=== PATIENT | male | born 1945 | race Caucasian/White ===

== ENCOUNTER 2022-01-14 05:37 | Day surgery (SDC) | payer OTHER ==
[2022-01-13 09:39] VITALS: BMI 23.6
[2022-01-14] MEDS ORDERED: EPINEPHrine 1 MG/ML AMP ONE (06:32)
[2022-01-14] MEDS ORDERED: Bupivacaine PF 0.5% 30 ML VIAL ONE (06:33)
[2022-01-14] MEDS ORDERED: PROPOFOL 20 ML ONE (06:35)
[2022-01-14] MEDS ORDERED: Fentanyl 100 MCG/2 ML VIAL ONE (06:35)
[2022-01-14] MEDS ORDERED: Lidocaine 1% PF 5 ML VIAL ONE (06:35)
[2022-01-14] MEDS ORDERED: Ondansetron PF 4 MG/2 ML Vial ONE (06:35)
[2022-01-14] MEDS ORDERED: CEFAZOLIN 2 GM VIAL ONE (06:47)
[2022-01-14] MEDS ORDERED: Famotidine/PF 20 mg/2ml Vial ONE (06:53)
[2022-01-14] MEDS ORDERED: Succinylcholine 200 MG/10 ml SYRINGE FS ONE (06:53)
[2022-01-14] MEDS ORDERED: Metoclopramide HCl 10 MG/2 ML VIAL ONE (06:54)
[2022-01-14] MEDS ORDERED: Dexamethasone 20 MG/5 ML VIAL ONE (07:11)
[2022-01-14] MEDS ORDERED: HYDROmorphone 0.5 MG/0.5 ML SYRINGE ONE ×2 (07:39→08:00)
[2022-01-14] MEDS ORDERED: Acetaminophen 325 MG TAB PO PRN (07:51)
[2022-01-14] MEDS ORDERED: HYDROcodone/Acetaminophen 5/325 mg Tablet PO PRN (07:51)
[2022-01-14] MEDS ORDERED: HYDROcodone/Acetaminophen 5/325 mg Tablet ONE (08:16)
== END 2022-01-14 08:45 | disposition home or self-care (01) ==
LOC: CSHSDC 05:37
PROVIDERS: ATTEND Surgery
PROC: 05HN33Z Insertion of Infusion Device into Left Internal Jugular Vein, Percutaneous Approach (ICD-10-PCS; principal; 2022-01-14)
DX: Z45.2 Encounter for adjustment and management of vascular access device (principal); C34.11 Malignant neoplasm of upper lobe, right bronchus or lung; I73.9 Peripheral vascular disease, unspecified; I10 Essential (primary) hypertension
CPT/HCPCS: 71045; C1788; J0171; J1100; J1170; J1642; J2405; J2704; J2765; J3010; S0020; S0028

== ENCOUNTER 2022-03-20 09:30 | Outpatient (CLI) | payer OTHER ==
[2022-03-20] MEDS ORDERED: Magnevist 469MG/ML 20 ML VIAL ONE (14:35)
== END 2022-03-20 09:31 | disposition home or self-care (01) ==
LOC: CSHMRI 09:30
PROVIDERS: ATTEND Radiology Radiation Oncology
DX: C79.31 Secondary malignant neoplasm of brain (principal); C34.90 Malignant neoplasm of unspecified part of unspecified bronchus or lung
CPT/HCPCS: 70553

== ENCOUNTER 2022-06-02 13:05 | Inpatient (IN) | payer OTHER ==
[~2022-06-02 13:05] MED LIST: Rocuronium Bromide 10 MG/ML (10ML VIAL) ONE
[2022-06-02] MEDS ORDERED: Propofol 1,000 MG/100 ML VIAL IV ONE (14:04)
[2022-06-02] MEDS ORDERED: Dextrose 5% in Water 1,000 ML IV PRN (14:22)
[2022-06-02] MEDS ORDERED: Dextrose 50% Abboject 50 ML SYRINGE SLOW IVP PRN (14:22)
[2022-06-02] MEDS ORDERED: Ventilator Sedation Protocol 1 EACH FS SCH (14:30)
[2022-06-02] MEDS ORDERED: Sodium Bicarbonate 50 MEQ, Admixture Fee 1 EACH in Sodium Chloride 0.45% 1,000 ML IV SCH (14:30)
[2022-06-02] MEDS ORDERED: Fentanyl BOLUS 250 ML IVPB PRN (14:45)
[2022-06-02] MEDS ORDERED: Propofol BOLUS 1,000 MG/100 ML VIAL IV PRN (14:45)
[2022-06-02] MEDS ORDERED: FENTANYL 2,000MCG/100-0.9%NACL 100 ML IVPB SCH (14:45)
[2022-06-02] MEDS ORDERED: DISCONTINUE PREVIOUS NARCOTIC PAIN MEDICATIONS AND BENZODIAZEPINES FS SCH (14:45)
[2022-06-02] MEDS ORDERED: Morphine 2 MG/ML VIAL SLOW IVP PRN (14:45)
[2022-06-02] MEDS ORDERED: Lorazepam 2 MG/ML VIAL SLOW IVP PRN (14:45)
[2022-06-02 15:13] LABS: Bilirubin Neg (Negative); Blood, Urine 10 (Negative); Clarity Cloudy (Clear); Glucose, Urine (Dipstick) 50 mg/dL (Negative); Ketone, Urine 15 mg/dL (Negative); Leukocyte 25 (Negative); Nitrite Negative (Negative); Protein, Urine (Dipstick) 30 mg/dl (Neg-Trace); Urobilinogen Normal mg/dL (Less than 2)
[2022-06-02] MEDS ORDERED: Sodium Chloride 0.9% 1,000 ML IV SCH (15:15)
[2022-06-02 15:22] LABS: Bacteria/HPF 1+ HPF (None Seen); Squamous Epithelial 0-3 HPF (0-3)
[2022-06-02 15:23] LABS: Mucous/LPF 1+ LPF (<2+)
[2022-06-02] MEDS: metroNIDAZOLE 500 MG in Premix Bag 1 BAG IVPB SCH (15:43)
[2022-06-02 15:53] LABS: Actual Bicarbonate (HCO3a) 11.4 mEq/L (22-28); Base Excess (BEa) -15.2 mEq/L (-2.0 to +3.0); CO2 Tension 29.6 mmHg (35.0-45.0); Calcium, Ionized (arterial) 1.15 mmol/L (1.12-1.30); Carboxyhemoglobin (COHb) 0.5 gm% (0.0-3.0); Hemoglobin (Hb) 13.2 g/dL (14.0-18.0); O2 Tension (PaO2), arterial 104.6 mmHg (> 70.0); Potassium - ABG Lab 3.9 mmol/L (3.70-5.30); Puncture Site LRA
[2022-06-02] MEDS: Diltiazem 125 MG, Admixture Fee 1 EACH in Sodium Chloride 0.9% 100 ML IVPB SCH (15:57)
[2022-06-02] MEDS ORDERED: Vancomycin Dose by Levels Sliding Scale (Wt 71-99) FS SCH (16:00)
[2022-06-02] MEDS ORDERED: VANCOMYCIN 1.25 GM/250 ML BAG 1.25 GM in Premix Bag 1 BAG IVPB SCH (16:00)
[2022-06-02] MEDS: Cefepime 1 GM in Sodium Chloride 0.9% 100 ML IVPB SCH (16:51)
[2022-06-02] MEDS ORDERED: HumaLOG 300 UNITS/3 ML VIAL ONE (17:03)
[2022-06-02] MEDS: HumaLOG 300 UNITS/3 ML VIAL SC PRN (17:06)
[2022-06-02 17:11] LABS: Lactic Acid 11.9 mmol/L (0.5-2.2)
[2022-06-02 17:40] LABS: Actual Bicarbonate (HCO3a) 13.6 mEq/L (22-28); Base Excess (BEa) -18.3 mEq/L (-2.0 to +3.0); CO2 Tension 60.7 mmHg (35.0-45.0); Calcium, Ionized (arterial) 1.09 mmol/L (1.12-1.30); Carboxyhemoglobin (COHb) 0.3 gm% (0.0-3.0); Critical Notified Whom: Alyssa, RN; Hemoglobin (Hb) 12.6 g/dL (14.0-18.0); O2 Tension (PaO2), arterial 314.8 mmHg (> 70.0); Potassium - ABG Lab 4.6 mmol/L (3.70-5.30); Puncture Site RRA; pH, Arterial 6.97 (7.35-7.45)
[2022-06-02 17:42] LABS: ALV-art Gradient 322.325 mmHg (0-20)
[2022-06-02] MEDS ORDERED: Sodium Bicarb 50 MEQ/50 ML Abboject 8.4% SYRINGE IVP SCH ×2 (18:15→18:45)
[2022-06-02] MEDS ORDERED: Sodium Bicarb 50 MEQ/50 ML VIAL FS SCH (18:15)
[2022-06-02] MEDS ORDERED: Sodium Bicarb 50 MEQ/50 ML VIAL IVP SCH (18:45)
[2022-06-02] MEDS ORDERED: Sodium Bicarbonate 150 MEQ in Dextrose 5% in Water 1,000 ML IV SCH (19:00)
[2022-06-02 19:32] LABS: ALV-art Gradient 167.225 mmHg (0-20); Actual Bicarbonate (HCO3a) 16.1 mEq/L (22-28); Base Excess (BEa) -8.3 mEq/L (-2.0 to +3.0); CO2 Tension 30.3 mmHg (35.0-45.0); Calcium, Ionized (arterial) 1.04 mmol/L (1.12-1.30); Carboxyhemoglobin (COHb) 0.7 gm% (0.0-3.0); Critical Notified By: CP.PH; Hemoglobin (Hb) 13.1 g/dL (14.0-18.0); O2 Tension (PaO2), arterial 80.1 mmHg (> 70.0); Potassium - ABG Lab 4.2 mmol/L (3.70-5.30); Puncture Site RRA; RapidComm Collect By CP.PH; pH, Arterial 7.34 (7.35-7.45)
[2022-06-02] MEDS ORDERED: Famotidine/PF 20 mg/2ml Vial SLOW IVP SCH (21:00)
[2022-06-02] MEDS ORDERED: Vancomycin HCl 1.5 GM in Sodium Chloride 0.9% 250 ML 300 ML IVPB SCH (21:00)
[2022-06-02] MEDS ORDERED: Acetaminophen 650 MG Suppository PR PRN (21:38)
[2022-06-02] MEDS: Heparin 5,000 UNITS/ML VIAL SC SCH (21:54)
[2022-06-02] MEDS: Acetaminophen 325 MG TAB PO PRN (22:00)
[2022-06-02 22:29] LABS: Anion Gap 24 mmol/L (10-20); BUN (Urea Nitrogen) 53 mg/dL (8.4-25.7); Calc. Creatinine Clearance 23 mL/min (70-130); Calcium 7.9 mg/dL (7.8-10.44); Carbon Dioxide 18 mmol/L (23-31); Chloride 102 mmol/L (98-107); Estimated GFR 21; Glucose 198 mg/dL (83-110); Potassium 3.5 mmol/L (3.5-5.1); Sodium 140 mmol/L (136-145)
[2022-06-03] MEDS: metroNIDAZOLE 500 MG in Premix Bag 1 BAG IVPB SCH ×3 (00:47→14:15)
[2022-06-03] MEDS: Propofol 1,000 MG/100 ML VIAL IV PRN ×3 (01:57→17:58)
[2022-06-03 03:09] LABS: Hemoglobin 11.6 g/dL (13.5-17.5); Mean Corpuscular Hemoglobin 30.1 pg (27.0-33.0); Mean Corpuscular Volume 88.6 fl (81.2-95.1); Mean Platelet Volume 10.6 fl (7.4-10.4); Platelet Count 120 10x3/uL (150-450); Red Blood Cell (RBC) Count 3.85 10x6/uL (4.32-5.72)
[2022-06-03 03:10] LABS: MDiff Complete? YES
[2022-06-03 04:01] LABS: Band 5 % (5-11); Lymphocytes 7 % (21-51); Metamyelocyte 3 % (0-0); Monocytes 10 % (0-10); Neutrophil 73 % (42-75); Platelet Morphology Comment Appears Decreased; Reactive Lymphocytes 2 % (0-10)
[2022-06-03 04:33] LABS: ALT (SGPT) 24 U/L (8-55); AST (SGOT) 35 U/L (5-34); Albumin 2.7 g/dL (3.4-4.8); Alkaline Phosphatase 33 U/L (40-110); Anion Gap 22 mmol/L (10-20); BUN (Urea Nitrogen) 57 mg/dL (8.4-25.7); Bilirubin, Total 0.4 mg/dL (0.2-1.2); Calc. Creatinine Clearance 21 mL/min (70-130); Calcium 7.8 mg/dL (7.8-10.44); Carbon Dioxide 21 mmol/L (23-31); Chloride 99 mmol/L (98-107); Estimated GFR 18; Globulin 3.1 g/dL (2.4-3.5); Glucose 188 mg/dL (83-110); Potassium 3.1 mmol/L (3.5-5.1); Protein, Total 5.8 g/dL (5.8-8.1); Sodium 139 mmol/L (136-145)
[2022-06-03] MEDS ORDERED: Sodium Bicarbonate 150 MEQ in Dextrose 5% in Water 1,000 ML IV SCH (05:15)
[2022-06-03] MEDS: Potassium Chloride 20 MEQ in Premix Bag 1 BAG IVPB SCH ×4 (05:25→20:37)
[2022-06-03 08:16] LABS: Actual Bicarbonate (HCO3a) 25.3 mEq/L (22-28); Base Excess (BEa) 3.3 mEq/L (-2.0 to +3.0); CO2 Tension 30.4 mmHg (35.0-45.0); Calcium, Ionized (arterial) 0.92 mmol/L (1.12-1.30); Carboxyhemoglobin (COHb) 0.5 gm% (0.0-3.0); O2 Tension (PaO2), arterial 69.1 mmHg (> 70.0); Potassium - ABG Lab 3.3 mmol/L (3.70-5.30); Puncture Site LRA; pH, Arterial 7.54 (7.35-7.45)
[2022-06-03] MEDS: Heparin 5,000 UNITS/ML VIAL SC SCH ×3 (09:24→21:32)
[2022-06-03 10:44] LABS: Lactic Acid 4.8 mmol/L (0.5-2.2)
[2022-06-03] MEDS: Diltiazem 125 MG, Admixture Fee 1 EACH in Sodium Chloride 0.9% 100 ML IVPB SCH ×2 (11:14→20:11)
[2022-06-03] MEDS ORDERED: Sodium Chloride 0.9% 500 ML IV SCH ×2 (11:45→15:45)
[2022-06-03] MEDS: Acetaminophen 325 MG TAB PO PRN (11:53)
[2022-06-03 15:01] LABS: Lactic Acid 4.3 mmol/L (0.5-2.2)
[2022-06-03] MEDS: Cefepime 1 GM in Sodium Chloride 0.9% 100 ML IVPB SCH (15:44)
[2022-06-03 16:21] LABS: Anion Gap 21 mmol/L (10-20); BUN (Urea Nitrogen) 61 mg/dL (8.4-25.7); Calc. Creatinine Clearance 22 mL/min (70-130); Calcium 7.8 mg/dL (7.8-10.44); Carbon Dioxide 26 mmol/L (23-31); Chloride 97 mmol/L (98-107); Estimated GFR 19; Glucose 135 mg/dL (83-110); Potassium 3.3 mmol/L (3.5-5.1); Sodium 141 mmol/L (136-145)
[2022-06-03] MEDS ORDERED: Vancomycin HCl 750 MG in Sodium Chloride 0.9% 250 ML 250 ML IVPB SCH (18:15)
[2022-06-03 19:26] LABS: Lactic Acid 3.8 mmol/L (0.5-2.2)
[2022-06-03] MEDS ORDERED: Famotidine/PF 20 mg/2ml Vial SLOW IVP SCH (21:00)
[2022-06-04] MEDS: metroNIDAZOLE 500 MG in Premix Bag 1 BAG IVPB SCH ×4 (00:24→23:47)
[2022-06-04] MEDS: Acetaminophen 325 MG TAB PO PRN ×2 (00:36→15:38)
[2022-06-04 03:52] LABS: Hemoglobin 10.6 g/dL (13.5-17.5); Mean Corpuscular HGB CONC 33.8 g/dL (32.0-36.0); Mean Corpuscular Hemoglobin 30.2 pg (27.0-33.0); Mean Corpuscular Volume 89.5 fl (81.2-95.1); Mean Platelet Volume 11.3 fl (7.4-10.4); Platelet Count 125 10x3/uL (150-450); RBC Distribution Width 13.3 % (11.5-14.5); Red Blood Cell (RBC) Count 3.51 10x6/uL (4.32-5.72)
[2022-06-04 03:55] LABS: ALT (SGPT) 33 U/L (8-55); AST (SGOT) 60 U/L (5-34); Albumin 2.4 g/dL (3.4-4.8); Alkaline Phosphatase 65 U/L (40-110); Anion Gap 19 mmol/L (10-20); BUN (Urea Nitrogen) 63 mg/dL (8.4-25.7); Bilirubin, Total 0.5 mg/dL (0.2-1.2); Calc. Creatinine Clearance 22 mL/min (70-130); Calcium 8.1 mg/dL (7.8-10.44); Carbon Dioxide 25 mmol/L (23-31); Chloride 100 mmol/L (98-107); Estimated GFR 21; Globulin 3.3 g/dL (2.4-3.5); Glucose 133 mg/dL (83-110); Potassium 3.4 mmol/L (3.5-5.1); Protein, Total 5.7 g/dL (5.8-8.1); Sodium 141 mmol/L (136-145)
[2022-06-04] MEDS: Propofol 1,000 MG/100 ML VIAL IV PRN ×3 (05:11→19:24)
[2022-06-04 05:38] LABS: MDiff Complete? YES
[2022-06-04] MEDS: Diltiazem 125 MG, Admixture Fee 1 EACH in Sodium Chloride 0.9% 100 ML IVPB SCH ×2 (05:40→15:38)
[2022-06-04 05:43] LABS: Band 34 % (5-11); Lymphocytes 7 % (21-51); Metamyelocyte 3 % (0-0); Monocytes 6 % (0-10); Neutrophil 50 % (42-75)
[2022-06-04 05:45] LABS: Anisocytosis SLIGHT = 6-15 cells (100X) (0-5/hpf); Platelet Morphology Comment Appears Decreased
[2022-06-04] MEDS: Heparin 5,000 UNITS/ML VIAL SC SCH ×3 (08:08→21:10)
[2022-06-04] MEDS: Cefepime 1 GM in Sodium Chloride 0.9% 100 ML IVPB SCH ×2 (08:08→21:10)
[2022-06-04] MEDS ORDERED: Potassium Bicarbonate/Cit Ac 20 MEQ TAB PO SCH (08:15)
[2022-06-04] MEDS ORDERED: Vancomycin HCl 500 MG in Sodium Chloride 0.9% 100 ML IVPB SCH (17:00)
[2022-06-04 17:04] LABS: Vancomycin, Random 13.9 ug/mL (See Comment)
[2022-06-04] MEDS ORDERED: Vancomycin HCl 750 MG in Sodium Chloride 0.9% 250 ML 250 ML IVPB SCH (17:30)
[2022-06-04] MEDS ORDERED: Famotidine/PF 20 mg/2ml Vial SLOW IVP SCH (21:00)
[2022-06-05] MEDS: Propofol 1,000 MG/100 ML VIAL IV PRN ×5 (00:38→19:57)
[2022-06-05] MEDS: Diltiazem 125 MG, Admixture Fee 1 EACH in Sodium Chloride 0.9% 100 ML IVPB SCH ×2 (04:25→15:52)
[2022-06-05 04:42] LABS: Mean Corpuscular HGB CONC 34.1 g/dL (32.0-36.0); Mean Corpuscular Hemoglobin 30.1 pg (27.0-33.0); Mean Corpuscular Volume 88.5 fl (81.2-95.1); Mean Platelet Volume 11.8 fl (7.4-10.4); Platelet Count 118 10x3/uL (150-450); RBC Distribution Width 13.4 % (11.5-14.5); Red Blood Cell (RBC) Count 3.65 10x6/uL (4.32-5.72); White Blood Cell (WBC) Count 15.9 10x3/uL (3.5-10.5)
[2022-06-05 05:01] LABS: Anion Gap 19 mmol/L (10-20); BUN (Urea Nitrogen) 61 mg/dL (8.4-25.7); Calc. Creatinine Clearance 31 mL/min (70-130); Calcium 8.5 mg/dL (7.8-10.44); Carbon Dioxide 22 mmol/L (23-31); Chloride 103 mmol/L (98-107); Estimated GFR 28; Glucose 160 mg/dL (83-110); Sodium 140 mmol/L (136-145)
[2022-06-05] MEDS: metroNIDAZOLE 500 MG in Premix Bag 1 BAG IVPB SCH ×3 (06:00→22:30)
[2022-06-05] MEDS: Cefepime 2 GM in Sodium Chloride 0.9% 100 ML IVPB SCH ×2 (08:14→19:43)
[2022-06-05] MEDS: Heparin 5,000 UNITS/ML VIAL SC SCH ×3 (08:15→20:00)
[2022-06-05] MEDS: HumaLOG 300 UNITS/3 ML VIAL SC PRN (12:10)
[2022-06-05] MEDS: Scopolamine 1.5 mg/72 hour Patch TD SCH (13:56)
[2022-06-05 16:52] LABS: Vancomycin, Random 13.1 ug/mL (See Comment)
[2022-06-05] MEDS ORDERED: Vancomycin HCl 750 MG in Sodium Chloride 0.9% 250 ML 250 ML IVPB SCH (20:00)
[2022-06-05] MEDS: Famotidine/PF 20 mg/2ml Vial SLOW IVP SCH (20:00)
[2022-06-05] MEDS: Acetaminophen 325 MG TAB PO PRN (20:39)
[2022-06-06] MEDS: HumaLOG 300 UNITS/3 ML VIAL SC PRN ×2 (00:07→05:38)
[2022-06-06] MEDS: Propofol 1,000 MG/100 ML VIAL IV PRN ×3 (00:07→08:32)
[2022-06-06] MEDS: Diltiazem 125 MG, Admixture Fee 1 EACH in Sodium Chloride 0.9% 100 ML IVPB SCH ×2 (03:35→15:22)
[2022-06-06 04:11] LABS: #Eosinphils 0.1 10x3/uL (0.0-0.5); #Monocytes 1.1 10x3/uL (0.0-1.1); #Neutrophils 13.6 10x3/uL (1.5-8.4); %Basophils 0.3 % (0.0-2.0); %Eosinophils 0.5 % (0.0-6.0); %Lymphocytes 5.2 % (18.0-47.0); %Monocytes 6.6 % (0.0-10.0); %Neutrophils 85.4 % (40.0-75.0); Hemoglobin 10.8 g/dL (13.5-17.5); Mean Corpuscular HGB CONC 32.5 g/dL (32.0-36.0); Mean Corpuscular Hemoglobin 30.1 pg (27.0-33.0); Mean Corpuscular Volume 92.5 fl (81.2-95.1); Platelet Count 132 10x3/uL (150-450); RBC Distribution Width 14.1 % (11.5-14.5); Red Blood Cell (RBC) Count 3.59 10x6/uL (4.32-5.72)
[2022-06-06 04:26] LABS: ALT (SGPT) 33 U/L (8-55); AST (SGOT) 45 U/L (5-34); Albumin 2.3 g/dL (3.4-4.8); Alkaline Phosphatase 227 U/L (40-110); Anion Gap 16 mmol/L (10-20); BUN (Urea Nitrogen) 55 mg/dL (8.4-25.7); Bilirubin, Total 0.6 mg/dL (0.2-1.2); Calc. Creatinine Clearance 34 mL/min (70-130); Calcium 8.4 mg/dL (7.8-10.44); Carbon Dioxide 23 mmol/L (23-31); Chloride 106 mmol/L (98-107); Estimated GFR 33; Globulin 3.7 g/dL (2.4-3.5); Glucose 163 mg/dL (83-110); Potassium 3.1 mmol/L (3.5-5.1); Sodium 142 mmol/L (136-145)
[2022-06-06] MEDS: metroNIDAZOLE 500 MG in Premix Bag 1 BAG IVPB SCH ×3 (06:06→23:15)
[2022-06-06] MEDS: Cefepime 2 GM in Sodium Chloride 0.9% 100 ML IVPB SCH ×2 (08:26→19:49)
[2022-06-06] MEDS ORDERED: Potassium Bicarbonate/Cit Ac 20 MEQ TAB PO SCH (08:30)
[2022-06-06] MEDS: Heparin 5,000 UNITS/ML VIAL SC SCH ×3 (08:36→20:18)
[2022-06-06] MEDS: Potassium Chloride 20 MEQ in Premix Bag 1 BAG IVPB SCH ×2 (08:43→11:20)
[2022-06-06] MEDS ORDERED: Docusate Sodium 100 MG/10 ML UDCUP PO PRN (11:03)
[2022-06-06] MEDS: Acetaminophen 325 MG TAB PO PRN (11:30)
[2022-06-06] MEDS ORDERED: Vancomycin HCl 750 MG in Sodium Chloride 0.9% 250 ML 250 ML IVPB SCH (17:00)
[2022-06-06] MEDS: Lactated Ringer's 1,000 ML IV SCH (19:48)
[2022-06-06] MEDS: Famotidine/PF 20 mg/2ml Vial SLOW IVP SCH (20:17)
[2022-06-07] MEDS: Diltiazem 125 MG, Admixture Fee 1 EACH in Sodium Chloride 0.9% 100 ML IVPB SCH ×2 (01:36→12:15)
[2022-06-07 04:20] LABS: Hemoglobin 12.9 g/dL (13.5-17.5); Mean Corpuscular HGB CONC 32.7 g/dL (32.0-36.0); Mean Corpuscular Volume 91.6 fl (81.2-95.1); Platelet Count 172 10x3/uL (150-450); RBC Distribution Width 14.4 % (11.5-14.5); White Blood Cell (WBC) Count 16.2 10x3/uL (3.5-10.5)
[2022-06-07 04:33] LABS: Anion Gap 16 mmol/L (10-20); BUN (Urea Nitrogen) 39 mg/dL (8.4-25.7); Calc. Creatinine Clearance 48 mL/min (70-130); Calcium 8.6 mg/dL (7.8-10.44); Carbon Dioxide 25 mmol/L (23-31); Chloride 110 mmol/L (98-107); Estimated GFR 48; Glucose 151 mg/dL (83-110); Potassium 3.6 mmol/L (3.5-5.1); Sodium 147 mmol/L (136-145)
[2022-06-07] MEDS: metroNIDAZOLE 500 MG in Premix Bag 1 BAG IVPB SCH ×3 (07:09→23:35)
[2022-06-07] MEDS: Cefepime 2 GM in Sodium Chloride 0.9% 100 ML IVPB SCH ×2 (08:39→20:22)
[2022-06-07] MEDS: Heparin 5,000 UNITS/ML VIAL SC SCH ×3 (08:39→20:23)
[2022-06-07] MEDS ORDERED: Guaifenesin DM 100-10/5 ML UDCUP PO PRN (10:06)
[2022-06-07] MEDS: Ondansetron PF 4 MG/2 ML Vial IVP PRN ×2 (15:30→20:54)
[2022-06-07] MEDS: Lactated Ringer's 1,000 ML IV SCH (15:37)
[2022-06-07] MEDS: HumaLOG 300 UNITS/3 ML VIAL SC PRN (17:08)
[2022-06-07] MEDS: Famotidine/PF 20 mg/2ml Vial SLOW IVP SCH (18:15)
[2022-06-07] MEDS: guaiFENesin ER 600 MG TAB PO SCH (20:23)
[2022-06-07] MEDS ORDERED: Diltiazem 125 MG in Sodium Chloride 0.9% 100 ML IVPB SCH (20:45)
[2022-06-08] MEDS ORDERED: Diltiazem 125 MG in Sodium Chloride 0.9% 100 ML IVPB SCH (01:00)
[2022-06-08 05:51] LABS: Hemoglobin 11.4 g/dL (13.5-17.5); Mean Corpuscular HGB CONC 31.6 g/dL (32.0-36.0); Mean Corpuscular Hemoglobin 29.3 pg (27.0-33.0); Mean Corpuscular Volume 92.8 fl (81.2-95.1); Mean Platelet Volume 10.6 fl (7.4-10.4); Platelet Count 230 10x3/uL (150-450); RBC Distribution Width 14.7 % (11.5-14.5); Red Blood Cell (RBC) Count 3.89 10x6/uL (4.32-5.72); White Blood Cell (WBC) Count 15.9 10x3/uL (3.5-10.5)
[2022-06-08 06:04] LABS: Anion Gap 14 mmol/L (10-20); BUN (Urea Nitrogen) 37 mg/dL (8.4-25.7); Calc. Creatinine Clearance 55 mL/min (70-130); Calcium 8.3 mg/dL (7.8-10.44); Carbon Dioxide 26 mmol/L (23-31); Chloride 110 mmol/L (98-107); Estimated GFR 57; Glucose 155 mg/dL (83-110); Potassium 3.6 mmol/L (3.5-5.1); Sodium 146 mmol/L (136-145)
[2022-06-08] MEDS: metroNIDAZOLE 500 MG in Premix Bag 1 BAG IVPB SCH ×3 (06:18→22:57)
[2022-06-08] MEDS ORDERED: Famotidine/PF 20 mg/2ml Vial SLOW IVP SCH (09:00)
[2022-06-08] MEDS: guaiFENesin ER 600 MG TAB PO SCH ×2 (09:19→20:18)
[2022-06-08] MEDS: Heparin 5,000 UNITS/ML VIAL SC SCH ×2 (09:19→15:37)
[2022-06-08] MEDS: Cefepime 2 GM in Sodium Chloride 0.9% 100 ML IVPB SCH ×2 (09:19→20:06)
[2022-06-08] MEDS: Polyethylene Glycol 3350 17 GM Packet PER TUBE PRN (09:20)
[2022-06-08] MEDS: Scopolamine 1.5 mg/72 hour Patch TD SCH (11:47)
[2022-06-08] MEDS: HumaLOG 300 UNITS/3 ML VIAL SC PRN ×2 (12:53→22:55)
[2022-06-08] MEDS: Apixaban 5 MG TAB PO SCH (20:18)
[2022-06-08] MEDS: Amiodarone 200 MG TAB PO SCH (20:18)
[2022-06-09] MEDS: HumaLOG 300 UNITS/3 ML VIAL SC PRN ×2 (06:07→12:15)
[2022-06-09] MEDS: metroNIDAZOLE 500 MG in Premix Bag 1 BAG IVPB SCH ×2 (06:11→16:08)
[2022-06-09] MEDS: Cefepime 2 GM in Sodium Chloride 0.9% 100 ML IVPB SCH ×2 (08:20→21:57)
[2022-06-09] MEDS: Acetaminophen 325 MG TAB PO PRN (08:20)
[2022-06-09] MEDS: Amiodarone 200 MG TAB PO SCH ×2 (08:21→21:57)
[2022-06-09] MEDS: Apixaban 5 MG TAB PO SCH ×2 (08:21→21:57)
[2022-06-09] MEDS: guaiFENesin ER 600 MG TAB PO SCH ×2 (08:21→21:57)
[2022-06-10 05:33] LABS: Hemoglobin 11.6 g/dL (13.5-17.5); Mean Corpuscular HGB CONC 32.2 g/dL (32.0-36.0); Mean Corpuscular Hemoglobin 29.4 pg (27.0-33.0); Mean Corpuscular Volume 91.1 fl (81.2-95.1); Mean Platelet Volume 10.4 fl (7.4-10.4); Platelet Count 256 10x3/uL (150-450); RBC Distribution Width 14.4 % (11.5-14.5); Red Blood Cell (RBC) Count 3.95 10x6/uL (4.32-5.72); White Blood Cell (WBC) Count 14.3 10x3/uL (3.5-10.5)
[2022-06-10 05:54] LABS: Anion Gap 15 mmol/L (10-20); BUN (Urea Nitrogen) 34 mg/dL (8.4-25.7); Calc. Creatinine Clearance 56 mL/min (70-130); Carbon Dioxide 19 mmol/L (23-31); Chloride 107 mmol/L (98-107); Estimated GFR 59; Glucose 148 mg/dL (83-110); Potassium 3.8 mmol/L (3.5-5.1); Sodium 137 mmol/L (136-145)
[2022-06-10] MEDS: Apixaban 5 MG TAB PO SCH ×2 (08:27→20:35)
[2022-06-10] MEDS: Polyethylene Glycol 3350 17 GM Packet PER TUBE PRN (08:27)
[2022-06-10] MEDS: guaiFENesin ER 600 MG TAB PO SCH ×2 (08:27→20:35)
[2022-06-10] MEDS: Amiodarone 200 MG TAB PO SCH ×2 (08:27→20:35)
[2022-06-10] MEDS: HumaLOG 300 UNITS/3 ML VIAL SC PRN (11:21)
[2022-06-10] MEDS ORDERED: Furosemide 20 MG TAB PO SCH (12:00)
[2022-06-11] MEDS: Amiodarone 200 MG TAB PO SCH ×2 (07:58→20:42)
[2022-06-11] MEDS: Apixaban 5 MG TAB PO SCH ×2 (07:58→20:43)
[2022-06-11] MEDS: guaiFENesin ER 600 MG TAB PO SCH ×2 (07:58→20:43)
[2022-06-11] MEDS: Scopolamine 1.5 mg/72 hour Patch TD SCH (11:52)
[2022-06-11] MEDS: Aspirin Chewable 81 MG TAB PO SCH (20:43)
[2022-06-11] MEDS: Atorvastatin Calcium 10 MG TAB PO SCH (20:43)
[2022-06-12] MEDS ORDERED: Morphine 2 MG/ML VIAL SLOW IVP SCH (07:15)
[2022-06-12 08:21] LABS: #Eosinphils 0.1 10x3/uL (0.0-0.5); #Neutrophils 13.4 10x3/uL (1.5-8.4); %Basophils 0.3 % (0.0-2.0); %Eosinophils 0.3 % (0.0-6.0); %Lymphocytes 4.4 % (18.0-47.0); %Monocytes 6.8 % (0.0-10.0); %Neutrophils 87.2 % (40.0-75.0); Hemoglobin 11.2 g/dL (13.5-17.5); Mean Corpuscular HGB CONC 32.8 g/dL (32.0-36.0); Mean Corpuscular Hemoglobin 29.7 pg (27.0-33.0); Mean Corpuscular Volume 90.5 fl (81.2-95.1); Mean Platelet Volume 10.3 fl (7.4-10.4); Platelet Count 340 10x3/uL (150-450); RBC Distribution Width 14.5 % (11.5-14.5); Red Blood Cell (RBC) Count 3.77 10x6/uL (4.32-5.72); White Blood Cell (WBC) Count 15.3 10x3/uL (3.5-10.5)
[2022-06-12 08:35] LABS: INR-International Normal Ratio 1.5; PTT 33.9 sec (22.0-33.0); Prothrombin Time 15.6 sec (9.5-12.1)
[2022-06-12 08:43] LABS: ALT (SGPT) 13 U/L (8-55); AST (SGOT) 19 U/L (5-34); Albumin 2.3 g/dL (3.4-4.8); Alkaline Phosphatase 111 U/L (40-110); Anion Gap 15 mmol/L (10-20); BUN (Urea Nitrogen) 29 mg/dL (8.4-25.7); Bilirubin, Total 0.6 mg/dL (0.2-1.2); Calc. Creatinine Clearance 58 mL/min (70-130); Calcium 7.9 mg/dL (7.8-10.44); Carbon Dioxide 20 mmol/L (23-31); Chloride 103 mmol/L (98-107); Estimated GFR 61; Globulin 3.5 g/dL (2.4-3.5); Glucose 159 mg/dL (83-110); Potassium 3.7 mmol/L (3.5-5.1); Protein, Total 5.8 g/dL (5.8-8.1); Sodium 134 mmol/L (136-145)
[2022-06-12] MEDS: guaiFENesin ER 600 MG TAB PO SCH ×2 (08:59→23:34)
[2022-06-12] MEDS: Apixaban 5 MG TAB PO SCH ×2 (08:59→23:34)
[2022-06-12] MEDS: Amiodarone 200 MG TAB PO SCH ×2 (09:00→23:34)
[2022-06-12] MEDS ORDERED: Potassium Chloride 20 MEQ TAB PO SCH ×2 (10:15→13:30)
[2022-06-12] MEDS: Atorvastatin Calcium 10 MG TAB PO SCH (23:34)
[2022-06-12] MEDS: Aspirin Chewable 81 MG TAB PO SCH (23:34)
[2022-06-13 04:11] LABS: #Eosinphils 0.1 10x3/uL (0.0-0.5); #Monocytes 0.9 10x3/uL (0.0-1.1); %Basophils 0.3 % (0.0-2.0); %Eosinophils 0.8 % (0.0-6.0); %Lymphocytes 6.3 % (18.0-47.0); %Monocytes 7.9 % (0.0-10.0); %Neutrophils 83.7 % (40.0-75.0); Hemoglobin 10.8 g/dL (13.5-17.5); Mean Corpuscular HGB CONC 32.4 g/dL (32.0-36.0); Mean Corpuscular Hemoglobin 29.8 pg (27.0-33.0); Mean Corpuscular Volume 91.7 fl (81.2-95.1); Mean Platelet Volume 10.4 fl (7.4-10.4); Platelet Count 369 10x3/uL (150-450); RBC Distribution Width 14.2 % (11.5-14.5); Red Blood Cell (RBC) Count 3.63 10x6/uL (4.32-5.72)
[2022-06-13 04:25] LABS: Anion Gap 12 mmol/L (10-20); BUN (Urea Nitrogen) 26 mg/dL (8.4-25.7); Calc. Creatinine Clearance 62 mL/min (70-130); Carbon Dioxide 23 mmol/L (23-31); Chloride 103 mmol/L (98-107); Estimated GFR 66; Glucose 146 mg/dL (83-110); Magnesium 2.1 mg/dL (1.6-2.6); Potassium 4.1 mmol/L (3.5-5.1); Sodium 134 mmol/L (136-145)
[2022-06-13 10:38] VITALS: BMI 24.8
[2022-06-13] MEDS: Apixaban 5 MG TAB PO SCH ×2 (11:17→21:43)
[2022-06-13] MEDS: Amiodarone 200 MG TAB PO SCH ×2 (11:17→21:42)
[2022-06-13] MEDS: guaiFENesin ER 600 MG TAB PO SCH ×2 (11:17→21:42)
[2022-06-13] MEDS: Ondansetron PF 4 MG/2 ML Vial IVP PRN (13:59)
[2022-06-13] MEDS ORDERED: Lidocaine 2% Viscous Solution 10 ML, Aluminum & Magnesium Hydroxide 30 ML SSW SCH (15:00)
[2022-06-13] MEDS: Calcium Carbonate 500 MG ChewTAB PO PRN (15:01)
[2022-06-13] MEDS: Aspirin Chewable 81 MG TAB PO SCH (21:42)
[2022-06-13] MEDS: Atorvastatin Calcium 10 MG TAB PO SCH (21:43)
[2022-06-14 05:06] LABS: #Eosinphils 0.1 10x3/uL (0.0-0.5); #Monocytes 0.7 10x3/uL (0.0-1.1); #Neutrophils 7.4 10x3/uL (1.5-8.4); %Basophils 0.3 % (0.0-2.0); %Eosinophils 1.1 % (0.0-6.0); %Lymphocytes 7.5 % (18.0-47.0); %Monocytes 8.2 % (0.0-10.0); %Neutrophils 82.1 % (40.0-75.0); Hemoglobin 11.2 g/dL (13.5-17.5); Mean Corpuscular HGB CONC 31.9 g/dL (32.0-36.0); Mean Corpuscular Hemoglobin 29.9 pg (27.0-33.0); Mean Corpuscular Volume 93.6 fl (81.2-95.1); Mean Platelet Volume 10.4 fl (7.4-10.4); Platelet Count 426 10x3/uL (150-450); Red Blood Cell (RBC) Count 3.75 10x6/uL (4.32-5.72)
[2022-06-14 05:19] LABS: Anion Gap 11 mmol/L (10-20); BUN (Urea Nitrogen) 24 mg/dL (8.4-25.7); Calc. Creatinine Clearance 72 mL/min (70-130); Calcium 8.2 mg/dL (7.8-10.44); Carbon Dioxide 26 mmol/L (23-31); Chloride 104 mmol/L (98-107); Estimated GFR 69; Glucose 165 mg/dL (83-110); Magnesium 2.2 mg/dL (1.6-2.6); Potassium 4.4 mmol/L (3.5-5.1); Sodium 137 mmol/L (136-145)
[2022-06-14] MEDS: guaiFENesin ER 600 MG TAB PO SCH ×2 (08:36→21:46)
[2022-06-14] MEDS: Amiodarone 200 MG TAB PO SCH ×2 (08:36→21:46)
[2022-06-14] MEDS: Apixaban 5 MG TAB PO SCH ×2 (08:36→21:46)
[2022-06-14] MEDS ORDERED: Furosemide 20 MG/2 ML VIAL SLOW IVP SCH (10:30)
[2022-06-14] MEDS ORDERED: Lidocaine 2% Viscous Solution 10 ML, Aluminum & Magnesium Hydroxide 30 ML SSW SCH (10:30)
[2022-06-14] MEDS: Scopolamine 1.5 mg/72 hour Patch TD SCH (12:44)
[2022-06-14] MEDS: Calcium Carbonate 500 MG ChewTAB PO PRN (13:15)
[2022-06-14] MEDS: Ondansetron PF 4 MG/2 ML Vial IVP PRN (15:39)
[2022-06-14] MEDS: Atorvastatin Calcium 10 MG TAB PO SCH (21:45)
[2022-06-14] MEDS: Aspirin Chewable 81 MG TAB PO SCH (21:46)
[2022-06-14] MEDS: Senokot S 8.6-50 MG TAB PO SCH (21:46)
[2022-06-15 05:21] LABS: Anion Gap 13 mmol/L (10-20); BUN (Urea Nitrogen) 23 mg/dL (8.4-25.7); Calc. Creatinine Clearance 70 mL/min (70-130); Calcium 8.2 mg/dL (7.8-10.44); Carbon Dioxide 24 mmol/L (23-31); Chloride 104 mmol/L (98-107); Estimated GFR 76; Glucose 138 mg/dL (83-110); Magnesium 2.2 mg/dL (1.6-2.6); Potassium 4.6 mmol/L (3.5-5.1); Sodium 136 mmol/L (136-145)
[2022-06-15 05:29] LABS: #Eosinphils 0.1 10x3/uL (0.0-0.5); #Monocytes 0.8 10x3/uL (0.0-1.1); #Neutrophils 7.8 10x3/uL (1.5-8.4); %Basophils 0.4 % (0.0-2.0); %Eosinophils 1.2 % (0.0-6.0); %Lymphocytes 7.2 % (18.0-47.0); %Monocytes 8.7 % (0.0-10.0); Hemoglobin 10.9 g/dL (13.5-17.5); Mean Corpuscular HGB CONC 31.4 g/dL (32.0-36.0); Mean Corpuscular Hemoglobin 29.3 pg (27.0-33.0); Mean Corpuscular Volume 93.3 fl (81.2-95.1); Mean Platelet Volume 10.2 fl (7.4-10.4); Platelet Count 465 10x3/uL (150-450); RBC Distribution Width 13.8 % (11.5-14.5); Red Blood Cell (RBC) Count 3.72 10x6/uL (4.32-5.72); White Blood Cell (WBC) Count 9.5 10x3/uL (3.5-10.5)
[2022-06-15] MEDS: Amiodarone 200 MG TAB PO SCH ×2 (08:40→20:32)
[2022-06-15] MEDS: Apixaban 5 MG TAB PO SCH ×2 (08:41→20:32)
[2022-06-15] MEDS: Polyethylene Glycol 3350 17 GM Packet PER TUBE SCH (08:41)
[2022-06-15] MEDS: guaiFENesin ER 600 MG TAB PO SCH ×2 (08:41→20:32)
[2022-06-15] MEDS: Senokot S 8.6-50 MG TAB PO SCH ×2 (08:41→20:32)
[2022-06-15] MEDS: Calcium Carbonate 500 MG ChewTAB PO PRN (13:19)
[2022-06-15] MEDS: Ondansetron PF 4 MG/2 ML Vial IVP PRN (13:19)
[2022-06-15] MEDS ORDERED: Lidocaine 2% Viscous Solution 10 ML, Aluminum & Magnesium Hydroxide 30 ML SSW SCH (13:45)
[2022-06-15] MEDS ORDERED: Bisacodyl 5 MG TAB PO SCH (13:45)
[2022-06-15] MEDS ORDERED: Bisacodyl 10 MG SUPP PR SCH (13:45)
[2022-06-15] MEDS: Aspirin Chewable 81 MG TAB PO SCH (20:32)
[2022-06-15] MEDS: Atorvastatin Calcium 10 MG TAB PO SCH (20:32)
[2022-06-16 05:43] LABS: #Basophils 0.1 10x3/uL (0.0-0.2); #Eosinphils 0.1 10x3/uL (0.0-0.5); #Neutrophils 7.6 10x3/uL (1.5-8.4); %Basophils 0.5 % (0.0-2.0); %Lymphocytes 7.1 % (18.0-47.0); %Monocytes 10.1 % (0.0-10.0); %Neutrophils 80.7 % (40.0-75.0); Hemoglobin 10.7 g/dL (13.5-17.5); Mean Corpuscular HGB CONC 31.5 g/dL (32.0-36.0); Mean Corpuscular Hemoglobin 29.5 pg (27.0-33.0); Mean Corpuscular Volume 93.7 fl (81.2-95.1); Platelet Count 463 10x3/uL (150-450); RBC Distribution Width 13.5 % (11.5-14.5); Red Blood Cell (RBC) Count 3.63 10x6/uL (4.32-5.72); White Blood Cell (WBC) Count 9.5 10x3/uL (3.5-10.5)
[2022-06-16 05:59] LABS: Anion Gap 13 mmol/L (10-20); BUN (Urea Nitrogen) 21 mg/dL (8.4-25.7); Calc. Creatinine Clearance 66 mL/min (70-130); Calcium 8.1 mg/dL (7.8-10.44); Carbon Dioxide 24 mmol/L (23-31); Chloride 103 mmol/L (98-107); Estimated GFR 71; Glucose 126 mg/dL (83-110); Magnesium 2.3 mg/dL (1.6-2.6); Potassium 4.6 mmol/L (3.5-5.1); Sodium 135 mmol/L (136-145)
[2022-06-16] MEDS ORDERED: Milk Of Magnesia 30 ML UDCUP PO SCH (08:00)
[2022-06-16] MEDS: Amiodarone 200 MG TAB PO SCH ×2 (08:10→20:56)
[2022-06-16] MEDS: Polyethylene Glycol 3350 17 GM Packet PER TUBE SCH (08:10)
[2022-06-16] MEDS: Senokot S 8.6-50 MG TAB PO SCH ×2 (08:10→20:56)
[2022-06-16] MEDS: guaiFENesin ER 600 MG TAB PO SCH ×2 (08:11→20:56)
[2022-06-16] MEDS: Apixaban 5 MG TAB PO SCH ×2 (08:11→20:55)
[2022-06-16] MEDS: HumaLOG 300 UNITS/3 ML VIAL SC PRN (18:03)
[2022-06-16] MEDS: Aspirin Chewable 81 MG TAB PO SCH (20:54)
[2022-06-16] MEDS: Atorvastatin Calcium 10 MG TAB PO SCH (20:56)
[2022-06-17 05:01] LABS: #Basophils 0.1 10x3/uL (0.0-0.2); #Eosinphils 0.1 10x3/uL (0.0-0.5); #Monocytes 0.9 10x3/uL (0.0-1.1); #Neutrophils 7.8 10x3/uL (1.5-8.4); %Basophils 0.7 % (0.0-2.0); %Lymphocytes 7.1 % (18.0-47.0); %Monocytes 9.6 % (0.0-10.0); Hemoglobin 10.9 g/dL (13.5-17.5); Mean Corpuscular Hemoglobin 29.6 pg (27.0-33.0); Mean Corpuscular Volume 92.7 fl (81.2-95.1); Mean Platelet Volume 9.7 fl (7.4-10.4); Platelet Count 437 10x3/uL (150-450); RBC Distribution Width 13.4 % (11.5-14.5); Red Blood Cell (RBC) Count 3.68 10x6/uL (4.32-5.72); White Blood Cell (WBC) Count 9.6 10x3/uL (3.5-10.5)
[2022-06-17 05:11] LABS: Anion Gap 13 mmol/L (10-20); BUN (Urea Nitrogen) 19 mg/dL (8.4-25.7); Calc. Creatinine Clearance 64 mL/min (70-130); Calcium 8.2 mg/dL (7.8-10.44); Carbon Dioxide 25 mmol/L (23-31); Chloride 103 mmol/L (98-107); Estimated GFR 68; Glucose 166 mg/dL (83-110); Magnesium 2.4 mg/dL (1.6-2.6); Potassium 4.5 mmol/L (3.5-5.1); Sodium 136 mmol/L (136-145)
[2022-06-17] MEDS: Apixaban 5 MG TAB PO SCH (10:05)
[2022-06-17] MEDS: guaiFENesin ER 600 MG TAB PO SCH (10:06)
[2022-06-17] MEDS: Amiodarone 200 MG TAB PO SCH (10:06)
[2022-06-17] MEDS: Senokot S 8.6-50 MG TAB PO SCH (10:06)
[2022-06-17] MEDS: Polyethylene Glycol 3350 17 GM Packet PER TUBE SCH (10:10)
[2022-06-17] MEDS: Scopolamine 1.5 mg/72 hour Patch TD SCH (12:40)
[2022-06-17 12:43] VITALS: BP 140/78; TEMP 98.4
== END 2022-06-17 15:12 | disposition swing bed (61) | DRG 871 ==
LOC: CSHERS 13:05 → CSHIMCU 14:25 → CSHTELE 06-07 22:31
PROVIDERS: ADMIT Internal Medicine; ATTEND Family Medicine
PROC: 0BH17EZ Insertion of Endotracheal Airway into Trachea, Via Natural or Artificial Opening (ICD-10-PCS; principal; 2022-06-02)
PROC: 5A1945Z Respiratory Ventilation, 24-96 Consecutive Hours (ICD-10-PCS; 2022-06-02)
PROC: 0DH67UZ Insertion of Feeding Device into Stomach, Via Natural or Artificial Opening (ICD-10-PCS; 2022-06-02)
PROC: 3E0G76Z Introduction of Nutritional Substance into Upper GI, Via Natural or Artificial Opening (ICD-10-PCS; 2022-06-02)
PROC: 4A133R1 Monitoring of Arterial Saturation, Peripheral, Percutaneous Approach (ICD-10-PCS; 2022-06-02)
PROC: 3E03329 Introduction of Other Anti-infective into Peripheral Vein, Percutaneous Approach (ICD-10-PCS; 2022-06-02)
DX: A41.9 Sepsis, unspecified organism (principal); J18.9 Pneumonia, unspecified organism; J96.01 Acute respiratory failure with hypoxia; E87.20 Acidosis, unspecified; N17.9 Acute kidney failure, unspecified; C78.00 Secondary malignant neoplasm of unspecified lung; C79.51 Secondary malignant neoplasm of bone; C79.31 Secondary malignant neoplasm of brain; N18.4 Chronic kidney disease, stage 4 (severe); E87.1 Hypo-osmolality and hyponatremia; J44.0 Chronic obstructive pulmonary disease with (acute) lower respiratory infection; R65.20 Severe sepsis without septic shock; I48.91 Unspecified atrial fibrillation; E78.5 Hyperlipidemia, unspecified; I12.9 Hypertensive chronic kidney disease with stage 1 through stage 4 chronic kidney disease, or unspecified chronic kidney disease; R53.81 Other malaise; R13.12 Dysphagia, oropharyngeal phase; D63.1 Anemia in chronic kidney disease; E87.6 Hypokalemia; N47.2 Paraphimosis; C43.9 Malignant melanoma of skin, unspecified; K21.9 Gastro-esophageal reflux disease without esophagitis; R33.9 Retention of urine, unspecified; E11.51 Type 2 diabetes mellitus with diabetic peripheral angiopathy without gangrene; Z87.891 Personal history of nicotine dependence; Z79.82 Long term (current) use of aspirin; Z79.899 Other long term (current) drug therapy; Z79.84 Long term (current) use of oral hypoglycemic drugs; Z80.9 Family history of malignant neoplasm, unspecified; Z82.49 Family history of ischemic heart disease and other diseases of the circulatory system
CPT/HCPCS: 31500; 36415; 36416; 36600; 51702; 71045; 71250; 74177; 80048; 80053; 80202; 81015; 82805; 83605; 83735; 84145; 85025; 85027; 85610; 85730; 86850; 86900; 86901; 87070; 87086; 87205; 93005; 93010; 93306; 93970; 94002; 94003; 94640; 94667; 94668; 94760; 94762; 94799; 96365; 97139; J0692; J1644; J1815; J1940; J2272; J2405; J2704; J3370; J3480; J3490; J7030; J7050; J7070; J7120; J7611; S0028

== ENCOUNTER 2022-08-08 08:36 | Outpatient (CLI) | payer OTHER | END 2022-08-08 08:37 | disposition home or self-care (01) | LOC: CSHWCC 08:36 | PROVIDERS: ATTEND Nurse Practitioner Family | DX: L89.324 Pressure ulcer of left buttock, stage 4 (principal); L89.314 Pressure ulcer of right buttock, stage 4 | CPT/HCPCS: 97605 ==

== ENCOUNTER 2022-08-12 07:56 | Outpatient (CLI) | payer OTHER | END 2022-08-12 07:57 | disposition home or self-care (01) | LOC: CSHWCC 07:56 | PROVIDERS: ATTEND Nurse Practitioner Family | DX: L89.324 Pressure ulcer of left buttock, stage 4 (principal); L89.314 Pressure ulcer of right buttock, stage 4 | CPT/HCPCS: 97139; G0463; 99213 ==

== ENCOUNTER 2022-08-15 08:26 | Outpatient (CLI) | payer OTHER | END 2022-08-15 08:27 | disposition home or self-care (01) | LOC: CSHWCC 08:26 | PROVIDERS: ATTEND Nurse Practitioner Family | DX: L89.314 Pressure ulcer of right buttock, stage 4 (principal); L89.324 Pressure ulcer of left buttock, stage 4 | CPT/HCPCS: 11042; 97605 ==

== ENCOUNTER 2022-09-23 08:43 | Outpatient (CLI) | payer OTHER ==
[2022-09-23] MEDS ORDERED: Iopamidol 300 61% 100 ML VIAL FS ONE (08:48)
== END 2022-09-23 08:44 | disposition home or self-care (01) ==
LOC: CSHCT 08:43
PROVIDERS: ATTEND Internal Medicine
DX: C34.90 Malignant neoplasm of unspecified part of unspecified bronchus or lung (principal); J18.9 Pneumonia, unspecified organism; C34.11 Malignant neoplasm of upper lobe, right bronchus or lung
CPT/HCPCS: 71260; 82565; Q9967

== ENCOUNTER 2022-09-30 13:06 | Outpatient (CLI) | payer OTHER | END 2022-09-30 13:07 | disposition home or self-care (01) | LOC: CSHWCC 13:06 | PROVIDERS: ATTEND Nurse Practitioner Family | DX: L89.324 Pressure ulcer of left buttock, stage 4 (principal); L89.314 Pressure ulcer of right buttock, stage 4 | CPT/HCPCS: 97139; G0463; 99213 ==

== ENCOUNTER 2022-10-21 09:19 | Outpatient (CLI) | payer OTHER | END 2022-10-21 09:20 | disposition home or self-care (01) | LOC: CSHWCC 09:19 | PROVIDERS: ATTEND Nurse Practitioner Family | DX: L89.314 Pressure ulcer of right buttock, stage 4 (principal) | CPT/HCPCS: 97139; G0463; 99213 ==

== ENCOUNTER 2022-12-17 08:18 | Outpatient (CLI) | payer OTHER ==
[2022-12-17] MEDS ORDERED: Iopamidol 300 61% 100 ML VIAL FS ONE (08:50)
== END 2022-12-17 08:19 | disposition home or self-care (01) ==
LOC: CSHCT 08:18
PROVIDERS: ATTEND Internal Medicine
DX: C34.11 Malignant neoplasm of upper lobe, right bronchus or lung (principal); R91.1 Solitary pulmonary nodule; J90 Pleural effusion, not elsewhere classified; N28.9 Disorder of kidney and ureter, unspecified; N28.1 Cyst of kidney, acquired; K57.30 Diverticulosis of large intestine without perforation or abscess without bleeding
CPT/HCPCS: 71260; 74177

== ENCOUNTER 2023-06-22 15:19 | Outpatient (CLI) | payer OTHER | END 2023-06-22 15:20 | disposition home or self-care (01) | LOC: CSHCP 15:19 | PROVIDERS: ATTEND Radiology Radiation Oncology | DX: C34.2 Malignant neoplasm of middle lobe, bronchus or lung (principal); J44.9 Chronic obstructive pulmonary disease, unspecified | CPT/HCPCS: 94010; 94726; 94729; 94760 ==

== ENCOUNTER 2023-07-24 08:19 | Outpatient (CLI) | payer OTHER | END 2023-07-24 08:20 | disposition home or self-care (01) | LOC: CSHCT 08:19 | PROVIDERS: ATTEND Internal Medicine | DX: C34.11 Malignant neoplasm of upper lobe, right bronchus or lung (principal); M79.89 Other specified soft tissue disorders; R91.1 Solitary pulmonary nodule; J90 Pleural effusion, not elsewhere classified; N28.9 Disorder of kidney and ureter, unspecified; M89.9 Disorder of bone, unspecified | CPT/HCPCS: 70553; 71260; 74177; 82565 ==

== ENCOUNTER 2023-09-28 09:19 | Outpatient (CLI) | payer OTHER ==
[2023-09-28] MEDS ORDERED: Iopamidol 300 61% 100 ML VIAL FS ONE (10:19)
== END 2023-09-28 09:20 | disposition home or self-care (01) ==
LOC: CSHCT 09:19
PROVIDERS: ATTEND Internal Medicine
DX: C34.90 Malignant neoplasm of unspecified part of unspecified bronchus or lung (principal); R91.1 Solitary pulmonary nodule
CPT/HCPCS: 71260; 74177; 82565; Q9967